=== PATIENT | male | born 1995 | race Caucasian/White ===

== ENCOUNTER 2017-08-12 23:18 | Inpatient (IN) | payer SELFPAY ==
[2017-08-13 00:09] VITALS: BMI 39.5
[2017-08-13] MEDS ORDERED: SODIUM CHLORIDE 1,000 ML IV STA (00:13)
[2017-08-13] MEDS ORDERED: FAMOTIDINE 20 MG/50 ML IVPB 20 MG/50 ML MG IVPB ONE ×2 (00:13→00:30)
[2017-08-13] MEDS ORDERED: ONDANSETRON 4 MG/2 ML VIAL IVPUSH ONE (00:15)
--- NOTE | 2017-08-13 00:19 | PDOC ---
History of Present Illness - General Chief Complaint: Pain Stated Complaint: ABD PAIN Time Seen by Provider: 08/13/17 00:10 History Source: Patient - History of Present Illness Initial Comments: 08/13/17 00:20 22-year-old male nausea, vomiting, generalized abdominal pain started today. Patient reports taking 1 shot of alcohol last night. as per patient pain radiates to the groin. patient reported that pain started shortly after 12 year old child stepped on his back. denies pmhx 08/13/17 01:17 08/13/17 02:25 Past History - Past Medical History Allergies/Adverse Reactions: Allergies Allergy/AdvReac Type Severity Reaction Status Date / Time No Known Allergies Allergy Verified 08/13/17 00:06 - Suicide/Smoking/Psychosocial Hx Smoking History: Never smoked Have you smoked in the past 12 months: No Information on smoking cessation initiated: No Hx Alcohol Use: No Drug/Substance Use Hx: No *Physical Exam - Vital Signs Last Vital Signs Temp Pulse Resp BP Pulse Ox 98.1 F 75 14 159/107 100 08/13/17 00:06 08/13/17 00:06 08/13/17 00:06 08/13/17 00:06 08/13/17 00:06 - Physical Exam General Appearance: Yes: Moderate Distress Gastrointestinal/Abdominal: positive: Tender (generalized tenderness. pain upper abdomen worse than lower abdomen. ) Musculoskeletal: positive: Normal Inspection Extremity: positive: Normal Capillary Refill Integumentary: positive: Pale Neurologic: positive: Fully Oriented, Alert, Normal Mood/Affect ED Treatment Course - LABORATORY CBC & Chemistry Diagram: 08/13/17 00:40 08/13/17 00:40 Progress Note - Progress Note Progress Note: A: Small bowel obstruction within ventral hernia. P: cbc cmp CTAP. PT/ PTT INR Medical Decision Making - Medical Decision Making 08/13/17 02:50 Dr. Gallagher. aware of patient. pre op labs. advised to lay patient flat. ice to abdomen. pain control. 08/13/17 02:58 small bulge felt at the periumbilical area. patient is laying flat with ice over abdomen. patient pending OR for further management of care. 08/13/17 03:03 *DC/Admit/Observation/Transfer Diagnosis at time of Disposition: Incarcerated ventral hernia - Discharge Dispostion Admit: Yes - Referrals - Patient Instructions - Post Discharge Activity
[2017-08-13] MEDS ORDERED: ONDANSETRON 4 MG/2 ML VIAL ONE ×2 (00:29→07:05)
--- NOTE | 2017-08-13 00:46 | PDOC ---
*Physical Exam - Vital Signs Last Vital Signs Temp Pulse Resp BP Pulse Ox 98.1 F 75 14 159/107 100 08/13/17 00:06 08/13/17 00:06 08/13/17 00:06 08/13/17 00:06 08/13/17 00:06 ED Treatment Course - LABORATORY CBC & Chemistry Diagram: 08/13/17 00:40 08/13/17 00:40 Medical Decision Making - Medical Decision Making 08/13/17 00:46 agree with care from MYLES Pope *DC/Admit/Observation/Transfer Diagnosis at time of Disposition: Incarcerated ventral hernia - Discharge Dispostion Condition at time of disposition: Improved - Referrals - Patient Instructions - Post Discharge Activity
[2017-08-13 00:52] LABS: BASO % 0.3 % (0-2.0); EOS % 0.2 % (0-4.5); HEMATOCRIT 40.9 % (35.4-49); HEMOGLOBIN 13.3 GM/dL (11.7-16.9); LYMPH % 10.4 % (8-40); MCH 27.4 pg (25.7-33.7); MCHC 32.6 g/dl (32.0-35.9); MEAN CELL VOLUME 84.2 fl (80-96); MONO % 8.9 % (3.8-10.2); NEUT % 80.2 % (42.8-82.8); PLATELET COUNT 235 K/MM3 (134-434); RBC 4.86 M/mm3 (4.00-5.60); RDW 14.2 % (11.9-15.9); WHITE BLOOD COUNT 11.8 K/mm3 (4.0-10.0)
[2017-08-13] MEDS ORDERED: HYDROmorphone HCL CARPU-JECT 1 MG/1 ML DISP.SYRIN IVPUSH ONE ×2 (01:07→05:16)
[2017-08-13] MEDS ORDERED: HYDROmorphone HCL CARPU-JECT 1 MG/1 ML DISP.SYRIN ONE ×2 (01:11→05:19)
[2017-08-13 01:17] LABS: ALBUMIN 4.2 g/dl (3.4-5.0); ALK PHOS 73 U/L (45-117); ANION GAP 11 (8-16); BILIRUBIN,TOTAL 0.3 mg/dL (0.2-1.0); BLOOD UREA NITROGEN 11 mg/dL (7-18); CALCIUM 9.5 mg/dL (8.5-10.1); CHLORIDE 104 mmol/L (98-107); CO2 26 mmol/L (21-32); CREATININE 1.1 mg/dL (0.7-1.3); GLUCOSE,RANDOM 103 mg/dL (74-106); LIPASE 69 U/L (73-393); POTASSIUM 3.9 mmol/L (3.5-5.1); SGOT/AST 31 U/L (15-37); SGPT/ALT 39 U/L (12-78); SODIUM 141 mmol/L (136-145); TOT PROT 7.9 g/dl (6.4-8.2)
[2017-08-13] MEDS ORDERED: SODIUM CHLORIDE 1,000 ML IV SCH (03:00)
[2017-08-13 03:53] LABS: INR 1.16 (0.82-1.09); PROTHROMBIN TIME (PATIENT) 13.1 SEC (9.98-11.88)
[2017-08-13 03:56] LABS: ACTIVATED PTT 36.8 SECONDS (26.9-34.4)
--- NOTE | 2017-08-13 04:39 | HP ---
Admitting History and Physical - Admission Chief Complaint: abdominal pain, n/v History of Present Illness: 22yo healthy M was in usual state of health yesterday but had some back pain. He let his girlfriend's 12 yo daughter walk on his back, but when he got up, he began having central abdominal pain which got progressively worse. He tried to vomit to relieve the pain, and had several episodes of bilious vomiting, "because I had nothing in my stomach." Last BM was soft yesterday, but it hurt too much to push to try and go to relieve this pain also. Last flatus also yesterday. No fever/chills, but feels hot and cold in ER. Some headache and dizziness starting "with the pain," but not usually. Had been unable to urinate secondary to pain until just after my exam, and it was yellow. Pain medication has relieved the pain somewhat, but not entirely. Last po was dinner around 4pm , but he had a shot of [email or web address] around 9pm and nothing since. He is thirsty. In the ER, wbc is 11, Cr is 1.1, other labs are normal. CT showed a small knuckle of small bowel in a supraumbilical ventral hernia. In supine position, with cold pack over the area, there is still a small bulge palpable, which is tender and is not reduced. His only surgical history is tonsillectomy. He does smoke cigarettes and marijuana. History Source: Patient Limitations to Obtaining History: No Limitations - Past Medical History Additional Past Medical History: none - Past Surgical History Past Surgical History: Yes: Tonsillectomy - Smoking History Smoking history: Current every day smoker Have you smoked in the past 12 months: Yes Aproximately how many cigarettes per day: 4 (used to be ~8/day, smoked for 5 years) - Alcohol/Substance Use Hx Alcohol Use: Yes Number of Drinks Daily: 1 (drinks every few weekends but has half a pint of kristian when he drinks) History of Substance Use: reports: Marijuana (daily) Date of Last Use: 08/12/17 - Social History Usual Living Arrangement: Yes: With Significant Other ADL: Independent Home Medications - Allergies Allergies/Adverse Reactions: Allergies Allergy/AdvReac Type Severity Reaction Status Date / Time Fish Containing Products Allergy Severe Swelling Verified 08/13/17 05:46 - Home Medications Home Medications: Ambulatory Orders NK [No Known Home Medication] 08/13/17 Family Disease History - Family Disease History Family History: Unremarkable Review of Systems - Review of Systems Constitutional: denies: Chills, Fever Eyes: reports: Other (wears glasses). denies: Recent Change in Vision HENT: denies: Difficult Swallowing, Throat Pain Neck: denies: Swollen Glands, Tenderness Cardiovascular: denies: Chest Pain, Palpitations Respiratory: denies: Cough, SOB Gastrointestinal: reports: Abdominal Pain (with hpi), Nausea (with hpi), Vomiting (with hpi). denies: Constipation, Diarrhea Genitourinary: denies: Burning, Dysuria Musculoskeletal: reports: Back Pain. denies: Joint Pain Integumentary: denies: Change in Color, Rash Neurological: reports: Dizziness (with pain/hpi), Headache (with pain/hpi) Psychiatric: reports: Anxiety. denies: Depression Physical Examination Vital Signs: Vital Signs Temperature 98.1 F 08/13/17 00:06 Pulse Rate 75 08/13/17 00:06 Respiratory Rate 14 08/13/17 00:06 Blood Pressure 159/107 08/13/17 00:06 O2 Sat by Pulse Oximetry (%) 100 08/13/17 00:06 being repeated now Constitutional: Yes: Well Nourished, Calm, Mild Distress Eyes: Yes: Conjunctiva Clear, EOM Intact HENT: Yes: Atraumatic, Normocephalic Neck: Yes: Supple, Trachea Midline Cardiovascular: Yes: Regular Rate and Rhythm, Tachycardia (mild) Respiratory: Yes: Regular, CTA Bilaterally Gastrointestinal: Yes: Soft, Abdomen, Obese (mildly), Hernia (with small bulge supraumbilically, reduction not attempted), Hypoactive Bowel Sounds, Palpable Mass (small bulge just above fascia supraumbilically, tender, reduction not attempted), Tenderness (mild diffuse, no R/G). No: Distention, Vomiting (not now) ...Rectal Exam: Yes: Deferred Renal/: No: CVA Tenderness - Left, CVA Tenderness - Right Musculoskeletal: No: Joint Stiffness, Joint Swelling Extremities: No: Cool, Cyanosis Edema: No Peripheral Pulses WNL: Yes Integumentary: Yes: Tattoos. No: Rash Neurological: Yes: Alert, Oriented Psychiatric: Yes: Alert, Oriented Labs: CBC, BMP 08/13/17 00:40 08/13/17 00:40 CMP Sodium 141 mmol/L (136-145) 08/13/17 00:40 Potassium 3.9 mmol/L (3.5-5.1) 08/13/17 00:40 Chloride 104 mmol/L (98-107) 08/13/17 00:40 Carbon Dioxide 26 mmol/L (21-32) 08/13/17 00:40 Anion Gap 11 (8-16) 08/13/17 00:40 BUN 11 mg/dL (7-18) 08/13/17 00:40 Creatinine 1.1 mg/dL (0.7-1.3) 08/13/17 00:40 Creat Clearance w eGFR > 60 (>60) 08/13/17 00:40 Random Glucose 103 mg/dL (74-106) 08/13/17 00:40 Lactic Acid 0.8 mmol/L (0.4-2.0) 08/13/17 03:27 Calcium 9.5 mg/dL (8.5-10.1) 08/13/17 00:40 Total Bilirubin 0.3 mg/dL (0.2-1.0) 08/13/17 00:40 AST 31 U/L (15-37) 08/13/17 00:40 ALT 39 U/L (12-78) 08/13/17 00:40 Alkaline Phosphatase 73 U/L (45-117) 08/13/17 00:40 Total Protein 7.9 g/dl (6.4-8.2) 08/13/17 00:40 Albumin 4.2 g/dl (3.4-5.0) 08/13/17 00:40 Lipase 69 U/L (73-393) L 08/13/17 00:40 INR, PTT INR 1.16 (0.82-1.09) H 08/13/17 03:27 Imaging - Results Cat Scan: Image Reviewed (knuckle/single loop of small bowel present in supraumbilical ventral hernia with small defect) Problem List - Problems (1) Ventral hernia with obstruction and without gangrene Assessment/Plan: admit 23H/satellite to surgery lactate normal NPO/IVF until postop at least Discussed with patient risks, benefits and alternatives of laparoscopic possible open incarcerated supraumbilical ventral hernia repair with possible mesh, possible bowel resection, including but not limited to bleeding, infection , injury to adjacent structures, intestinal leak or injury, intraabdominal abscess, hernia recurrence, need for further procedures; risks of not doing surgery include bowel ischemia, perforation, sepsis, . Patient desires to proceed with operation - will take to OR emergently for above. Informed consent signed for same. Periop antibiotics DVT prophylaxis pain meds prn If bowel is viable, and procedure is completed laparoscopically, pt may be eligible for discharge later today. If open/hybrid procedure is necessary, pt will likely stay until tomorrow. If bowel resection is performed, will change pt to inpatient status. Code(s): K43.6 - OTHER AND UNSP VENTRAL HERNIA WITH OBSTRUCTION, W/O GANGRENE (2) Nausea and vomiting Code(s): R11.2 - NAUSEA WITH VOMITING, UNSPECIFIED Qualifiers: Vomiting type: bilious vomiting Qualified Code(s): R11.14 - Bilious vomiting (3) Abdominal pain Code(s): R10.9 - UNSPECIFIED ABDOMINAL PAIN Qualifiers: Abdominal location: generalized Qualified Code(s): R10.84 - Generalized abdominal pain (4) Dehydration Code(s): E86.0 - DEHYDRATION
[2017-08-13 05:40] LABS: URINE APPEARANCE CLEAR; URINE BILIRUBIN NEGATIVE (NEGATIVE); URINE BLOOD NEGATIVE (NEGATIVE); URINE COLOR YELLOW; URINE GLUCOSE (UA) NEGATIVE (NEGATIVE); URINE KETONE 2+ (NEGATIVE); URINE LEUK ESTERASE NEGATIVE (NEGATIVE); URINE NITRITE NEGATIVE (NEGATIVE); URINE UROBILINOGEN NEGATIVE mg/dL (0.2-1.0)
[2017-08-13] MEDS ORDERED: oxyCODONE HCL 5 MG TABLET PO PRN ×5 (05:52→21:18)
[2017-08-13] MEDS ORDERED: ONDANSETRON 4 MG/2 ML VIAL IVPUSH PRN ×3 (05:52→21:18)
[2017-08-13] MEDS ORDERED: LACTATED RINGERS SOLUTION 1,000 ML IV SCH ×4 (06:00→21:30)
[2017-08-13 06:14] LABS: URINE PROTEIN 1+ (NEGATIVE)
[2017-08-13] MEDS ORDERED: PROPOFOL 20 ML ONE ×3 (06:15→07:26)
[2017-08-13] MEDS ORDERED: LIDOCAINE HCL 2% 100 MG/5 ML DISP.SYRIN ONE (06:15)
[2017-08-13] MEDS ORDERED: SUCCINYLCHOLINE CHLORIDE 200 MG/10 ML VIAL ONE ×2 (06:16→07:57)
[2017-08-13] MEDS ORDERED: ePHEDrine SULFATE 50 MG/1 ML AMPULE ONE (06:16)
[2017-08-13 06:25] LABS: URINE MUCUS FEW
[2017-08-13] MEDS ORDERED: CEFOXITIN SODIUM 2 GM IVPB ONE (06:28)
[2017-08-13] MEDS ORDERED: MIDAZOLAM HCL 2 MG/2 ML SINGLE DOSE VIAL ONE (06:51)
[2017-08-13] MEDS ORDERED: cefOXitin SODIUM 1 GM VIAL (RESTRICTED TO ID) IVPB ONE ×2 (07:01)
[2017-08-13] MEDS ORDERED: KETOROLAC TROMETHAMINE 30 MG/1 ML VIAL ONE (07:05)
[2017-08-13] MEDS ORDERED: DEXAMETHASONE SOD PHOSPHATE 4 MG/1 ML VIAL ONE (07:05)
[2017-08-13] MEDS ORDERED: BUPIVACAINE HCL/PF 0.5% (5MG/ML) 10 ML VIAL ONE (07:08)
[2017-08-13] MEDS ORDERED: NEOSTIGMINE METHYLSULFATE 0.5 MG/ML - 10 ML MDV ONE (07:15)
[2017-08-13] MEDS ORDERED: GLYCOPYRROLATE 0.2 MG/1 ML VIAL ONE (07:15)
[2017-08-13] MEDS ORDERED: ROCURONIUM BROMIDE 50 MG/5 ML VIAL ONE (07:22)
[2017-08-13] MEDS ORDERED: BUPIVACAINE HCL/PF 0.5% (5MG/ML) 10 ML VIAL IJ ONE ×2 (09:12)
--- NOTE | 2017-08-13 09:36 | OP ---
Operative Note - Note: Operative Date: 08/13/17 Pre-Operative Diagnosis: incarcerated supraumbilical ventral hernia Operation: laparoscopic incarcerated supraumbilical ventral hernia repair Findings: bowel reduced spontaneously on induction of anesthesia; all bowel appeared viable with no signs of ischemia; preperitoneal fat and hernia sac also reduced and amputated, sent to pathology, small defect covered with 11.4cm circular Bard Ventralight ST mesh with Echo PS Post-Operative Diagnosis: Same as Pre-op Surgeon: Marcial Gallagher Audiovisual Technician: Josué Donovan Anesthesiologist/HYDRAULIC BULL RIVETER OPERATOR: Natacha Jordan (w/Com+Guolucía) Anesthesia: General, Local (20ml 0.5% marcaine) Specimens Removed: hernia sac Estimated Blood Loss (mls): 5 Fluid Volume Replaced (mls): 800 (crystalloid) Operative Report Dictated: Yes
[2017-08-13] MEDS ORDERED: ACETAMINOPHEN 325 MG TABLET (FP) PO PRN ×3 (09:40→21:18)
[2017-08-13] MEDS ORDERED: IBUPROFEN 600 MG TABLET (FP) PO PRN ×3 (09:41→21:18)
--- NOTE | 2017-08-13 12:48 | OP ---
DATE OF OPERATION: 08/13/2017 PREOPERATIVE DIAGNOSIS: Incarcerated supraumbilical ventral hernia. POSTOPERATIVE DIAGNOSIS: Incarcerated supraumbilical ventral hernia. PROCEDURE: Laparoscopic incarcerated supraumbilical ventral hernia repair ( including mesh). SURGEON: Marcial Gallagher MD [employer]IVERS LICENSE EXAMINER: Josué Donovan MD ANESTHESIA: General endotracheal and local 20 mL 0.5% Marcaine. ESTIMATED BLOOD LOSS: 5 mL. FLUIDS: 800 mL crystalloid. SPECIMEN: Hernia sac to pathology. FINDINGS: Small bowel loop in the hernia reduced spontaneously upon induction of anesthesia. All bowel appeared viable with no signs of ischemia. The preperitoneal fat and the hernia sac were also reduced, amputated, and sent to Pathology. Small supraumbilical defect as well as a tiny umbilical defect were both covered together with an 11.4-cm circular Bard Ventralight ST mesh with the Echo Positioning System. DISPOSITION: Stable and extubated to PACU. INDICATION FOR PROCEDURE: The patient is a generally healthy 22-year-old obese male who smokes both cigarettes and marijuana and also drinks alcohol every few weekends who was in his usual state of health yesterday but did have some back pain. He had let his girlfriend's 12-year-old daughter walk on his back and he tensed up when she started to fall, trying to catch her. When he got up, he began having central abdominal pain, which got progressively worse. Vomiting did not relieve the pain, although he had several episodes of bilious vomiting with "nothing in his stomach". He then came to the emergency room where his white count was noted to be 11. He was slightly dehydrated. A CT scan was done, which showed a small knuckle of small bowel in a supraumbilical ventral hernia, which despite supine positioning, pain medication, and a cold pack over the area, did not reduce in the ER. Risks, benefits, and alternatives of laparoscopic, possible open, incarcerated supraumbilical ventral hernia repair with possible mesh and possible bowel resection including, but not limited to, bleeding, infection, injury to adjacent structures, intestinal leak or injury, intra-abdominal abscess, hernia recurrence, and need for further procedures were discussed with the patient who understands and desires to proceed with operation. Informed consent was signed for the same. He is now brought emergently to the operating room for this procedure. OPERATIVE TECHNIQUE: The patient was brought to the operating room and laid supine on the operating table. Sequential compression devices were applied to bilateral lower extremities, and 2 g of Cefoxitin was given as preoperative antibiotic. After induction and intubation by anesthesia, the patient's abdomen was clipped of hair, and the hernia was palpated and noted to be fully reduced with no bulge being palpable superior to the umbilicus anymore. There was a very small umbilical hernia and preperitoneal fat also palpable, which had also been seen on CT scan. His abdomen was then prepped and draped in the usual sterile fashion. A short subxiphoid midline incision was made with a scalpel and carried into subcutaneous tissues with electrocautery until the abdominal wall fascia was identified, scored, and elevated with Bonnie clamps. The peritoneum was entered bluntly with the tip of a clamp and a fingertip inserted to ensure entry into the abdominal cavity. The falciform ligament was palpable inferiorly. A stay suture of 0 Vicryl was then placed in the fascia in [id number] fashion for later closure, and a Sharif trocar introduced directly into the abdominal cavity and secured in place with the balloon. The abdomen was insufflated with carbon dioxide, and a 5-mm 30-degree laparoscope inserted to inspect the abdominal cavity. The falciform ligament was visualized with a thin, filmy connection to the anterior abdominal wall along most of its length leading down to the area of the supraumbilical hernia. There was no bowel noted tenting up to the abdominal wall. All small bowel was, in fact, lying down in the abdominal cavity. The camera was first used to visualize all of the easily seen bowel loops with no obvious or apparent visualized site of either bruised or discolored bowel, indentations on the bowel armenta, or any other signs of either ischemia or evidence that a portion of the bowel had been up in the hernia sac. There did appear to be some preperitoneal fat still up in the area of the hernia defect just above the umbilicus, but the defect itself was not clearly visible. In addition , two 5-mm ports were then placed in the left and right lateral sides of the abdomen on a line just above the umbilicus. These were placed under direct vision. Through one of them, a bowel grasper was used to gently run some portions of the small bowel that were visible, again, looking for any obvious site of the bowel loop that likely had been present in the hernia, but none was identified. The terminal ileum leading to the cecum and a normal appendix were visualized. Much of the proximal small bowel was decompressed. There was a short distance of terminal ileum that was slightly dilated, but again, nothing that clearly looked like a transition point from the hernia itself. Attention was then turned to taking down the falciform ligament. This was accomplished with a grasper in one port. The camera was moved periodically through the operation to any of the 3 ports to facilitate best visualization for the moment, but a grasper through one port was used, and Endoscissors attached to cautery were used through another port. After initially bluntly the filmy window of the falciform ligament, the hot scissors were used to separate the remaining portion, such that the falciform ligament was only attached at the most superior aspect of the anterior abdominal wall, so that mesh would be able to lie flat against the hernia repair, and visualization was complete circumferentially around the hernia itself. Attention was then turned to grasping the fat just underneath the hernia site. Gentle traction on this area was noted to more fully reduce the hernia sac and some preperitoneal fat from both the supraumbilical and umbilical hernia sites. Again, both cold and hot scissors were used to separate the hernia sac, including the fat, from the anterior abdominal wall, until a moderate-sized ball of tissue was completely released from the anterior abdominal wall. This was retrieved with a grasper out the subxiphoid port site by letting down the balloon of the Sharif trocar and removing the entirety of the trocar, followed by the specimen out that skin opening, and passing it off the table for a pathology specimen as hernia sac. The Sharif trocar was then re-established as well as pneumoperitoneum, and hemostasis was also noted to be complete at the conclusion of these maneuvers. Briefly, inspection was undertaken to see if we could identify the actual fascial edges of the defect in the anterior abdominal wall superior to the umbilicus. This was not as clear, in the sense that the defect itself appeared to be short but linear along the midline, as opposed to rounder or oval with a clear opening in the fascia. Ultimately, the decision was made to cover both the supraumbilical and umbilical defects, the latter of which also was not visible, with the mesh without attempting to close the defects with percutaneous sutures. An 11.4-cm circular Bard Ventralight ST mesh was chosen for hernia repair and dipped in saline, according to therapeutic mentor's instructions, rolled up, and inserted through the 10 -mm trocar into the abdominal cavity. This took 2 attempts to get it down the trocar site, and it later became apparent that the balloon on the positioning system may have been damaged on the first attempt. Once the entirety of the mesh was visualized from one of the side port sites entering the abdominal cavity, a suture passer was used through a stab incision in the midline of the anterior abdominal wall, just above the umbilicus, in the midportion of where the final positioning of the mesh was intended to be, and used to retrieve the positioning tubing from the abdominal cavity. With attempts to blow up the balloon and position the mesh against the anterior abdominal wall, it was noted that the balloon did not inflate, at which point we recognized that this must have been a consequence of the initial attempt to feed it down the trocar site with the grasper. We were, however, able to use the tubing to hold the mesh up against the center spot. A grasper was then used from one side of the abdomen to hold the mesh up against the anterior abdominal wall, while a tacker was used from the other side to begin placing some outer crown tacks around the periphery of the mesh to hold it in place, first from one side, then from the other. The AbsorbaTack device was used to continue placing tacks at the periphery of the mesh from both right and left sides to secure it circumferentially to the anterior abdominal wall. Once a full crown of circumferential tacks had been placed, the camera was moved to a side port, and a grasper used through the Sharif trocar to retrieve the green positioning system balloon from the mesh itself and retrieve it out of the abdomen. It was checked to make sure all parts were intact, and the tacker was then used to continue placing several additional tacks, both at the periphery and as an inner crown, to ensure complete fixation of the mesh. At this point, we were satisfied with the placement and securing of the mesh. Therefore, attention was turned one last time toward the small bowel, which again, was inspected and gently run with bowel graspers until we were satisfied that no sites of ischemia, compromise, or injury to the bowel were noted. Then, the two 5-mm ports were removed under direct vision. The Sharif trocar was also removed from the abdomen, which was exsufflated of carbon dioxide. The stay suture at the subxiphoid port was tied to close the fascia there. Hemostasis was achieved in the port sites with electrocautery where necessary. Local anesthetic was infiltrated into all of the port sites, and skin was closed with 4-0 Biosyn subcuticular sutures in the two 5-mm sites, and a running 4-0 Vicryl subcuticular suture in the subxiphoid site. Dressings of benzoin and Steri-Strips were placed over all locations, which were then covered with gauze and Tegaderm, including a small pressure dressing at the hernia site/stab wound. Counts were correct at the end of the procedure. The patient was then awakened and extubated by anesthesia, moved back onto a stretcher, and taken to the recovery room in stable condition having tolerated the procedure well. Dr. Donovan was an essential daycare assistant during the procedure, facilitating the dissection and taking down of the falciform and hernia sac and its retrieval, placement and tacking of the mesh, and closure of the skin. Marcial Gallagher M.D. [id number] MTDD
[2017-08-13] MEDS ORDERED: oxyCODONE HCL 5 MG TABLET ONE (13:01)
[2017-08-13] MEDS ORDERED: DOCUSATE SODIUM 100 MG CAPSULE (FP) PO SCH (22:00)
[2017-08-13] MEDS: DOCUSATE SODIUM 100 MG CAPSULE (FP) PO SCH (22:39)
--- NOTE | 2017-08-14 09:47 | DS ---
Physical Examination Vital Signs: Vital Signs Temperature 98.5 F 08/14/17 05:42 Pulse Rate 80 08/14/17 05:42 Respiratory Rate 18 08/14/17 05:42 Blood Pressure 148/79 08/14/17 05:42 O2 Sat by Pulse Oximetry (%) 96 08/13/17 20:25 Labs: CBC, BMP 08/13/17 00:40 08/13/17 00:40 Discharge Summary Reason For Visit: IRREDUCIBLE HERNIA OF ANTERIOR ABDOMINAL WALL Current Active Problems Abdominal pain (Acute) Dehydration (Acute) Incarcerated ventral hernia (Acute) Nausea and vomiting (Acute) Ventral hernia with obstruction and without gangrene (Acute) Condition: Improved - Instructions Diet, Activity, Other Instructions: Postoperative instructions: You had a laparoscopic incarcerated ventral hernia repair with mesh on 08/13/[address] Marcial Gallagher of [facility]. Activity: Resume your usual activities gradually, but no heavy exertion or lifting more than 10-15 pounds for 4-6 weeks. Remove dressings 48 hours after surgery; sticky tapes underneath will fall off by themselves. You may shower daily starting then, just pat the incision areas dry. No bath or swimming until skin incisions are fully healed. Eat lightly at first, but advance to your usual diet as tolerated. Pain: For pain, you may use and alternate Tylenol (acetaminophen) and/or ibuprofen every 6 hours each as needed; this means that you can take one OR the other at 3-hour intervals. If you are prescribed a Tylenol/narcotic combination for severe pain, use it instead of plain Tylenol as needed and switch back when your pain starts decreasing. Do not take more than 4000mg of acetaminophen in a day. Take medications as prescribed or indicated on the labeling. If taking a narcotic combination, use a stool softener 2-3 times daily (100mg docusate sodium/"Colace" - available over the counter) until no longer using the narcotic and stools are regularly soft and moving - if they get too loose, it's ok to cut down the dose. Avoid alcohol and smoking throughout your recovery period. Do not drink alcohol while taking any narcotic medication. Follow-up: Call Dr. Gallagher's office at [phone] to make your postop appointment (Thursday ~2 weeks after surgery). Clinic is held in the [facility] on the first floor of [facility]. Call the office if you have: * increasing pain not responsive to pain medication * fever of 101F or higher * vomiting * unusual or increasing bleeding or drainage from wounds * increasing redness or swelling at wound sites * inability to urinate Also, call for an appointment with Dr. Trejo or your previous primary care doctor within 1-2 weeks. Referrals: Pipo Trejo MD [Staff Physician] - 2 Weeks (for new primary care - call for appt within 2 weeks) Disposition: HOME - Home Medications Comprehensive Discharge Medication List: Ambulatory Orders NK [No Known Home Medication] 08/13/17
[2017-08-14] MEDS ORDERED: FLU VACCINE QUAD 60 MCG/0.5 ML (MDV 17-18) IM ONE (10:00)
[2017-08-14] MEDS ORDERED: KETOROLAC TROMETHAMINE 30 MG/1 ML VIAL IVPUSH STA (10:12)
[2017-08-14] MEDS ORDERED: oxyCODONE HCL 5 MG TABLET PO PRN (10:13)
--- NOTE | 2017-08-14 10:15 | PN ---
Progress Note, Physician - Current Medication List Current Medications: Active Medications Acetaminophen (Tylenol -) 650 mg PO Q6H PRN PRN Reason: PAIN Last Admin: 08/14/17 08:05 Dose: 650 mg Docusate Sodium (Colace -) 100 mg PO BID [facility] Last Admin: 08/13/17 22:39 Dose: 100 mg Lactated Ringer's (Lactated Ringers Solution) 1,000 mls @ 125 mls/hr IV ASDIR [facility] Last Admin: 08/14/17 06:48 Dose: 125 mls/hr Ibuprofen (Motrin -) 600 mg PO Q6H PRN PRN Reason: PAIN Ketorolac Tromethamine (Toradol Injection -) 30 mg IVPUSH ONCE STA Stop: 08/14/17 10:13 Ondansetron HCl (Zofran Injection) 4 mg IVPUSH Q6H PRN PRN Reason: NAUSEA AND/OR VOMITING Oxycodone HCl (Roxicodone -) 10 mg PO Q6H PRN PRN Reason: PAIN LEVEL 6-10 - Objective Vital Signs: Vital Signs Temperature 98.5 F 08/14/17 05:42 Pulse Rate 80 08/14/17 05:42 Respiratory Rate 18 08/14/17 05:42 Blood Pressure 148/79 08/14/17 05:42 O2 Sat by Pulse Oximetry (%) 96 08/13/17 20:25 Vital Signs Period Temp Pulse Resp BP Sys/Salazar Pulse Ox Last 24 Hr 98.3 F-98.6 F 75-98 16-18 129-172/54-88 95-100 Constitutional: Yes: No Distress, Calm, Obese HENT: Yes: Atraumatic, Normocephalic Neck: Yes: Supple, Trachea Midline Cardiovascular: Yes: Regular Rate and Rhythm, S1, S2 Respiratory: Yes: Regular, CTA Bilaterally Gastrointestinal: Yes: Normal Bowel Sounds, Soft, Abdomen, Obese, Tenderness ( levon incisonal Xyphiod >> umbilcal, lateral port site non-tender) ...Rectal Exam: Yes: Deferred Genitourinary: No: CVA Tenderness - Left, CVA Tenderness - Right Extremities: No: Cool, Cyanosis Edema: No Peripheral Pulses WNL: Yes Peripheral Pulses: Left Doralis Pedis: 2+, Right Dorsalis Pedis: 2+ Integumentary: No: Jaundice, Rash Wound/Incision: Yes: Clean/Dry, Well Approximated, Dressing Dry and Intact Neurological: Yes: Alert, Oriented Psychiatric: Yes: Alert, Oriented Labs: CBC, BMP 08/13/17 00:40 08/13/17 00:40 Problem List - Problems (1) Ventral hernia with obstruction and without gangrene Assessment/Plan: 22yo male presented with an acute incarceration of a ventral hernia after he someone walk on his back. His wbc is 11, Cr is 1.1, other labs are normal. CT showed a small knuckle of small bowel in a supraumbilical ventral hernia. He was taken for laparoscopic ventral hernia repair with mesh. POD1 he was converted to full admission for poor oral in take an inadequate pain control. He does smoke cigarettes and marijuana. Advance to regular diet Stat dose of toradol increase oxycodone to 10mg q6h stool softener encourage OOB and ambulate continue IS Re-evaluate in AM Code(s): K43.6 - OTHER AND UNSP VENTRAL HERNIA WITH OBSTRUCTION, W/O GANGRENE (2) Abdominal pain Code(s): R10.9 - UNSPECIFIED ABDOMINAL PAIN Qualifiers: Abdominal location: generalized Qualified Code(s): R10.84 - Generalized abdominal pain (3) Incarcerated ventral hernia Code(s): K46.0 - UNSP ABDOMINAL HERNIA WITH OBSTRUCTION, WITHOUT GANGRENE (4) Nausea and vomiting Code(s): R11.2 - NAUSEA WITH VOMITING, UNSPECIFIED Qualifiers: Vomiting type: bilious vomiting Qualified Code(s): R11.14 - Bilious vomiting
[2017-08-14] MEDS: DOCUSATE SODIUM 100 MG CAPSULE (FP) PO SCH ×2 (10:20→21:19)
[2017-08-14] MEDS ORDERED: KETOROLAC TROMETHAMINE 15 MG/ML VIAL IVPUSH PRN (11:41)
--- NOTE | 2017-08-14 13:02 | PATH ---
Surgical Pathology Report Patient Name: MARQUIS LING Med. Rec. #: [id number] /Age/Gender: 1995 (Age: 22) / M Account: [id number] Location: [address] [place] [address] Taken: 08/13/2017 Received: 08/13/2017 Reported: 08/14/2017 Physicians: Marcial Gallagher M.D. Specimen(s) Received HERNIA SAC VENTRAL Clinical History Incarcerated ventral hernia with small bowel loop Final Diagnosis SOFT TISSUE, ABDOMINAL WALL, EXCISION: FIBROMEMBRANOUS TISSUE CONSISTENT WITH HERNIA SAC, WITH ATTACHED ADIPOSE TISSUE. Electronically Signed Suman Richardson M.D. Gross Description Received in formalin labeled "ventral hernia sac," is a 5.0 x 2.7 x 1.7 cm pink-alatorre, irregular portion of fibromembranous tissue with attached fat, consistent with a hernia sac. The specimen displays an attached possible vessel. Assisted Living Home Director sections are submitted in one cassette. /08/13/2017 saudi08/13/2017
[2017-08-14] MEDS: SIMETHICONE 80 MG TAB.CHEW (FP) PO PRN (17:59)
[2017-08-14 21:18] VITALS: TEMP 98.2
[2017-08-15] MEDS: SIMETHICONE 80 MG TAB.CHEW (FP) PO PRN (02:45)
[2017-08-15] MEDS: DOCUSATE SODIUM 100 MG CAPSULE (FP) PO SCH (09:42)
[2017-08-15] MEDS ORDERED: ACETAMINOPHEN 325 MG TABLET (FP) PO PRN (11:33)
[2017-08-15] MEDS ORDERED: oxyCODONE HCL 5 MG TABLET PO PRN ×2 (11:34→11:36)
[2017-08-15 11:43] VITALS: BP 134/71; PULSE 75
--- NOTE | 2017-08-15 11:51 | DS ---
Physical Examination Vital Signs: Vital Signs Temperature 98.2 F 08/14/17 21:17 Pulse Rate 75 08/15/17 09:00 Respiratory Rate 18 08/15/17 09:00 Blood Pressure 134/71 08/15/17 09:00 O2 Sat by Pulse Oximetry (%) 96 08/14/17 21:00 Findings/Remarks: Pt seen and examined in bed. Feeling better, pain was better after toradol last evening. Had oxycodone this morning with mild effect. Will take ibuprofen now. Has tolerated few bites per meal of regular diet, appetite slowly returning. Had small BM this morning. Voiding ok. Passing gas. Ambulating in halls, using IS. Ready to go home. Constitutional: Yes: Well Nourished, No Distress, Calm Eyes: Yes: Conjunctiva Clear, EOM Intact HENT: Yes: Atraumatic, Normocephalic Cardiovascular: Yes: Regular Rate and Rhythm. No: Murmur Respiratory: Yes: Regular, CTA Bilaterally Gastrointestinal: Yes: Normal Bowel Sounds, Soft, Tenderness (incisional only, mainly subxiphoid and umbilical). No: Distention Extremities: No: Cool, Cyanosis Integumentary: Yes: Incision (x4 dressed), Tattoos Wound/Incision: Yes: Clean/Dry, Well Approximated, Steri Strips, Open to air ( left that way), Dressing Dry and Intact (x4), Dressing Removed (x4) Neurological: Yes: Alert, Oriented Labs: no new labs Discharge Summary Reason For Visit: IRREDUCIBLE HERNIA OF ANTERIOR ABDOMINAL WALL Current Active Problems Abdominal pain (Acute) Dehydration (Acute) Incarcerated ventral hernia (Acute) Nausea and vomiting (Acute) Ventral hernia with obstruction and without gangrene (Acute) Procedures: Principal: laparoscopic incarcerated supraumbilical ventral hernia repair (with mesh) Hospital Course: 22yo obese but healthy M smoker presented to ER with acute onset of central abdominal pain after a functional Valsalva maneuver (tensed up while 12yo was walking on his back for pain), associated with no relief from vomiting or attempt to use the bathroom. He was mildly dehydrated in the ER with wbc 11, and CT showed a loop of small bowel in a supraumbilical ventral hernia with no clear obstruction. The hernia could not be reduced with pain medication, supine positioning and cold pack, and he was taken emergently to OR for repair. The incarcerated hernia reduced on induction of anesthesia, and laparoscopic hernia repair with mesh placement was performed after excision of the hernia sac. Postop, he had been admitted as a satellite patient, and was able to take some clear liquids initially, but had no appetite for food, and pain control required conversion to inpatient stay for a second night. His pain improved after a dose of Toradol, he has been ambulating and voiding, had a small BM this morning, and has been passing gas. Incisional pain is manageable with Percocet and ibuprofen. He had a small amount of breakfast and is getting his appetite back. Incisions with steristrips are dry and intact. He is discharged home to follow up in 2 weeks with lifting restrictions. Condition: Good - Instructions Diet, Activity, Other Instructions: Postoperative instructions: You had a laparoscopic incarcerated ventral hernia repair with mesh on 08/13/[address] Marcial Gallagher of [facility]. Activity: Resume your usual activities gradually, but no heavy exertion or lifting more than 10-15 pounds for 4-6 weeks. Sticky tapes on incisions will fall off by themselves. You may shower daily but no bath or swimming, just pat the incision areas dry. Eat lightly at first, but advance to your usual diet as tolerated. Pain: For pain, you may use and alternate Tylenol (acetaminophen) and/or ibuprofen every 6 hours each as needed; this means that you can take one OR the other at 3-hour intervals. If you are prescribed a Tylenol/narcotic combination for severe pain, use it instead of plain Tylenol as needed and switch back when your pain starts decreasing. Do not take more than 4000mg of acetaminophen in a day. Take medications as prescribed or indicated on the labeling. If taking a narcotic combination, use a stool softener 2-3 times daily (100mg docusate sodium/"Colace" - available over the counter) until no longer using the narcotic and stools are regularly soft and moving - if they get too loose, it's ok to cut down the dose. Avoid alcohol and smoking throughout your recovery period. Do not drink alcohol while taking any narcotic medication. Follow-up: Call Dr. Gallagher's office at [phone] to make your postop appointment (Thursday ~2 weeks after surgery). Clinic is held in the Diagnostic Center on the first floor of [facility]. Call the office if you have: * increasing pain not responsive to pain medication * fever of 101F or higher * vomiting * unusual or increasing bleeding or drainage from wounds * increasing redness or swelling at wound sites * inability to urinate Also, call for an appointment with Dr. Trejo or your previous primary care doctor within 1-2 weeks. Referrals: Pipo Trejo MD [Staff Physician] - 2 Weeks (for new primary care - call for appt within 2 weeks) Disposition: HOME - Home Medications Comprehensive Discharge Medication List: Ambulatory Orders Docusate Sodium [Colace -] 100 mg PO BID capsule 08/15/17 Ibuprofen [Motrin -] 600 mg PO Q6H PRN tablet 08/15/17 Oxycodone HCl/Acetaminophen [Percocet 5-325 mg Tablet] 1 - 2 tab PO Q6H PRN #22 tab MDD 8 08/15/17
[2017-08-15] MEDS ORDERED: IBUPROFEN 600 MG TABLET (FP) PO ONE (13:00)
== END 2017-08-15 14:01 | disposition home or self-care (01) | DRG 227 ==
LOC: JER 23:18 → JERBED 08-13 02:52 → UNDOADMOB 08-13 02:52 → JASUSAT 08-13 02:52 → J6S 08-13 19:15 → JASUSAT 08-14 09:58 → J6S 08-14 09:58
PROVIDERS: ADMIT Surgery; ATTEND Surgery
PROC: 0WUF4JZ Supplement Abdominal Wall with Synthetic Substitute, Percutaneous Endoscopic Approach (ICD-10-PCS; principal; 2017-08-13 06:10)
DX: K43.6 Other and unspecified ventral hernia with obstruction, without gangrene (principal); F17.200 Nicotine dependence, unspecified, uncomplicated; F12.10 Cannabis abuse, uncomplicated; R11.2 Nausea with vomiting, unspecified; E86.0 Dehydration; R10.84 Generalized abdominal pain; E66.8 Other obesity; Z68.39 Body mass index [BMI] 39.0-39.9, adult; F10.20 Alcohol dependence, uncomplicated
CPT/HCPCS: 36415; 74176-TC; 80053; 81003; 81015; 83605; 83690; 85025; 85610; 85730; 86850; 86900; 86901; 88302-TC; 94760; 99281-25